=== PATIENT | male | born 1960 | race Caucasian/White ===

== ENCOUNTER 2016-11-29 12:03 | Emergency (ER) | END 2016-11-29 12:35 | disposition home or self-care (01) | DX: S81.851A Open bite, right lower leg, initial encounter (principal); I10 Essential (primary) hypertension; W54.0XXA Bitten by dog, initial encounter; Y92.009 Unspecified place in unspecified non-institutional (private) residence as the place of occurrence of the external cause; Z79.82 Long term (current) use of aspirin; Z79.01 Long term (current) use of anticoagulants; Z98.61 Coronary angioplasty status | CPT/HCPCS: 90471; 90715; Z7502 ==

== ENCOUNTER 2017-02-07 19:13 | Emergency (ER) | payer SELFPAY ==
[~2017-02-07] VITALS: Ht 167.6 cm; Wt 113.0 kg
[~2017-02-07 19:13] MED LIST: AMOX1TAB10 PO; ASPI325T4 PO; CLOP75TA27 PO; METO-448 PO; SIMV40TA3 PO; TAMS0.4C2 PO; VALS160T20 PO
[2017-02-07 19:23] VITALS: Ht 167.6 cm; Wt 113.0 kg
== END 2017-02-07 23:51 | disposition left against medical advice (07) ==
LOC: E/R 19:13
DX: Z53.21 Procedure and treatment not carried out due to patient leaving prior to being seen by health care provider (principal)